=== PATIENT | male | born 1970 | race Hispanic/Latino ===

== ENCOUNTER 2019-03-04 12:27 | Emergency (ER) | payer BC ==
--- NOTE | 2019-03-04 13:11 | Event Note ---
ED Screening Note Date of service: 03/04/19 Time: 13:06 ED Screening Note: Reports nasty infection to groin with redness and pain. Reports getting bigger. Reports chills. Took Ibuprofen. Denies animal bite. Started a few weeks ago. Pain 09/14/ .Tried sqeeze pus out himself with little pus. Similar incident in the past. Insur of TD status GEN: A& O x3. non toxic. VSS, afeb SKIN: Noted red raised area to RT pubic/groin area. TTP. Some area of fluctuance. No necrosis. This initial assessment/diagnostic orders/clinical plan/treatment(s) is/are subject to change based on patients health status, clinical progression and re- assessment by fellow clinical providers in the ED. Further treatment and workup at subsequent clinical providers discretion. Patient/guardian urged not to elope from the ED as their condition may be serious if not clinically assessed and managed. Initial orders include: Needs incision and dtainage and Boostrix
--- NOTE | 2019-03-04 15:13 | Emergency Department Report ---
- General Chief complaint: Urogenital-Male Stated complaint: BODY ACHE Time Seen by Provider: 03/04/19 13:05 Source: patient Mode of arrival: Ambulatory Limitations: No Limitations - History of Present Illness Initial comments: Patient is 48 years old male with no significant past medical history. Patient presented to the ER complaining of right groin abscess for the last 2 weeks. Patient denied any fever or chills. Patient also denied any nausea or vomiting. MD complaint: abscess/boil -: week(s) (2) Tetanus Up to Date: yes Severity: moderate Associated symptoms: denies other symptoms - Related Data Allergies Allergy/AdvReac Type Severity Reaction Status Date / Time No Known Allergies Allergy Unverified 03/04/19 12:30 Abscess Boil HPI - HPI Chief Complaint: Urogenital-Male Stated Complaint: BODY ACHE Time Seen by Provider: 03/04/19 13:05 Allergies/Adverse Reactions: Allergies Allergy/AdvReac Type Severity Reaction Status Date / Time No Known Allergies Allergy Unverified 03/04/19 12:30 ED Review of Systems ROS: Stated complaint: BODY ACHE Other details as noted in HPI Comment: All other systems reviewed and negative Constitutional: denies: chills, fever Respiratory: denies: cough, shortness of breath Cardiovascular: denies: chest pain Gastrointestinal: denies: abdominal pain, nausea, vomiting ED Past Medical Hx - Past Medical History Previous Medical History?: No - Surgical History Past Surgical History?: No - Social History Smoking Status: Never Smoker Substance Use Type: Alcohol ED Physical Exam - General Limitations: No Limitations General appearance: alert, in no apparent distress - Head Head exam: Present: atraumatic, normocephalic, normal inspection - Eye Eye exam: Present: normal appearance - ENT ENT exam: Present: normal exam, mucous membranes moist - Respiratory Respiratory exam: Present: normal lung sounds bilaterally - Cardiovascular Cardiovascular Exam: Present: regular rate, normal rhythm, normal heart sounds - GI/Abdominal GI/Abdominal exam: Present: soft. Absent: distended, tenderness, guarding, rebound - Extremities Exam Extremities exam: Present: normal inspection, full ROM - Neurological Exam Neurological exam: Present: alert, oriented X3, CN II-XII intact - Skin Skin exam: Present: other (32 cm abscess to the right groin area, fluctuant) ED Course Vital Signs 03/04/19 13:03 Temperature 98.2 F Pulse Rate 99 H Respiratory 20 Rate Blood Pressure 157/86 O2 Sat by Pulse 97 Oximetry - I & D Groin Blade Size: 11 I & D Procedure: betadine prep, sterile drapes applied, sterile dressing applied, gauze wick placed Critical care attestation.: If time is entered above; I have spent that time in minutes in the direct care of this critically ill patient, excluding procedure time. ED Disposition Clinical Impression: Abscess, Cellulitis Disposition: DC-01 TO HOME OR SELFCARE Is pt being admited?: No Condition: Stable Instructions: Abscess Incision and Drainage (ED) Referrals: [facility] [Provider Group] - 3-5 Days
[2019-03-04 15:59] VITALS: BP 150/80
== END 2019-03-04 15:57 | disposition home or self-care (01) ==
LOC: ED 12:27
DX: L02.214 Cutaneous abscess of groin (principal)
CPT/HCPCS: 99282